=== PATIENT | male | born 2000 | race African-American/Black ===

== ENCOUNTER 2018-10-26 17:47 | Emergency (ER) | payer MEDICAID, OTHER ==
[~2018-10-26] VITALS: Ht 180.3 cm; Wt 105.0 kg
[2018-10-26 18:00] VITALS: BP 102/81
== END 2018-10-26 20:21 | disposition home or self-care (01) ==
LOC: ER 17:48
DX: S83.91XA Sprain of unspecified site of right knee, initial encounter (principal); Z98.890 Other specified postprocedural states; X50.1XXA Overexertion from prolonged static or awkward postures, initial encounter; Y93.72 Activity, wrestling; Y92.214 College as the place of occurrence of the external cause; Y99.8 Other external cause status
CPT/HCPCS: 73564; 99283